=== PATIENT | male | born 1985 | race Caucasian/White ===

== ENCOUNTER 2019-01-08 20:01 | Emergency (ER) | payer OTHER ==
[~2019-01-08] VITALS: Ht 175.3 cm; Wt 83.6 kg
[2019-01-08 20:06] VITALS: Ht 175.3 cm; Wt 83.6 kg
[2019-01-08 21:05] LABS: PLATELET COUNT 278 x10^3mcL (130-400); RED CELL DISTRIBUTION WIDTH 13.7 % (11.5-14.5)
[2019-01-08 21:09] LABS: BASOPHIL % 0 % (0-2)
[2019-01-08 21:32] LABS: CALCIUM 9.5 mg/dL (8.5-10.1); CARBON DIOXIDE 33.1 mmol/L (21-32); CHLORIDE SERUM 104 mmol/L (98-107); GFR1 > 60 mL/min; GLUCOSE SERUM 106 mg/dL (74-106); POTASSIUM SERUM 4.5 mmol/L (3.5-5.1); SODIUM SERUM 142 mmol/L (136-145)
[2019-01-08 21:37] LABS: ALKALINE PHOSPHATASE 60 U/L (46-116); ALT/SGPT 29 U/L (16-63); AST/SGOT 11 U/L (15-37); BILIRUBIN TOTAL 0.4 mg/dL (0.20-1.00); TOTAL PROTEIN, SERUM 7.8 g/dL (6.4-8.2)
[2019-01-08 22:17] VITALS: BP 113/72
== END 2019-01-08 22:17 | disposition home or self-care (01) ==
LOC: ED 20:01
PROVIDERS: Emergency Medicine
DX: R07.89 Other chest pain (principal); Z90.89 Acquired absence of other organs
CPT/HCPCS: 36415; 83880; Q0092

== ENCOUNTER 2020-04-05 09:54 | Emergency (ER) | payer OTHER ==
[~2020-04-05] VITALS: Ht 175.3 cm; Wt 92.5 kg
[2020-04-05 10:10] VITALS: Ht 175.3 cm; Wt 92.5 kg
[2020-04-05 11:34] VITALS: BP 120/65
== END 2020-04-05 11:34 | disposition home or self-care (01) ==
LOC: ED 09:54
DX: R07.89 Other chest pain (principal); Z90.89 Acquired absence of other organs
CPT/HCPCS: Q0092